=== PATIENT | female | born 1950 | race Caucasian/White ===

== ENCOUNTER 2024-08-29 18:07 | Inpatient (IN) | payer MEDICARE ==
[2024-08-29] MEDS: Sodium Chloride 0.9% 1,000 ML IV SCH (19:24)
[2024-08-29 19:29] LABS: BASOPHILS PERCENT AUTO 0.5 % (0.1-1.3); HEMATOCRIT 35.4 % (34.3-46.0); HEMOGLOBIN 12.6 g/dL (11.2-15.5); LYMPHOCYTES ABSOLUTE AUTO 0.24 K/uL (0.8-3.3); LYMPHOCYTES PERCENT AUTO 12.2 % (11.4-47.7); MEAN CORPUSCULAR HEMOGLOBIN 30.8 pg (31.6-35.5); MEAN CORPUSCULAR HGB CONC 35.6 g/dL (31.6-35.5); MEAN CORPUSCULAR VOLUME 86.6 fL (81.4-99.0); MONOCYTES ABSOLUTE AUTO 0.17 K/uL (0.20-0.90); MONOCYTES PERCENT AUTO 8.6 % (3.3-12.6); NEUTROPHILS ABSOLUTE AUTO 1.55 K/uL (1.0-7.6); NEUTROPHILS PERCENT AUTO 78.7 % (40.0-78.1); PLATELET COUNT,PLT 41 K/uL (130-375); RED BLOOD CELL COUNT 4.09 M/uL (3.77-5.24)
[2024-08-29 19:42] LABS: BASOPHILS ABSOLUTE AUTO 0.01 K/uL (0.00-0.10)
[2024-08-29 19:47] LABS: ALANINE AMINOTRANSFERASE,ALT 40 U/L (12-78); ALBUMIN 2.7 g/dL (3.4-5.0); ALKALINE PHOSPHATASE 73 U/L (46-116); ASPARTATE AMNIOTRANSFERASE,AST 57 U/L (15-37); BILIRUBIN TOTAL 0.4 mg/dL (0.2-1.0); BLOOD UREA NITROGEN,BUN 12 mg/dL (7-18); CALCIUM 8.6 mg/dL (8.5-10.1); CARBON DIOXIDE,CO2 22 mmol/L (21-32); CHLORIDE,CL 100 mmol/L (100-108); CREATININE 0.8 mg/dL (0.6-1.0); EST CRCL DRUG DOSING (CG) 64.12 mL/min; ESTIMATED GFR 78 mL/min (>60); GLUCOSE RANDOM 137 mg/dL (74-106); PROTEIN TOTAL,TP 5.5 g/dL (6.4-8.2); SODIUM,NA 132 mmol/L (140-148)
[2024-08-29] MEDS: Sodium Chloride 0.9% 80 ML IV SCH (20:07)
[2024-08-29] MEDS: Iopamidol 612 MG/ML 100 ML Bottle IV SCH (20:07)
[2024-08-29 20:08] LABS: BILIRUBIN,URINE NEGATIVE (NEGATIVE); COLOR,URINE YELLOW (YELLOW); GLUCOSE,URINE NEGATIVE (NEGATIVE); KETONES,URINE NEGATIVE (NEGATIVE); LEUKOCYTE ESTERASE,URINE SMALL (NEGATIVE); NITRITE,URINE NEGATIVE (NEGATIVE); OCCULT BLOOD,URINE TRACE-LYSED (NEGATIVE); PROTEIN,URINE 30 mg/dL (NEGATIVE); UROBILINOGEN,URINE 0.2 EU/dL (0.2-1.0)
[2024-08-29 20:14] LABS: AMORPHOUS SEDIMENT,URINE NOT SEEN; APPEARANCE,URINE SLIGHTLY CLOUDY (CLEAR); BACTERIA,URINE FEW; EPITHELIAL CELLS,URINE FEW; MUCUS,URINE NOT SEEN; RBC,URINE 0-5 (0-5)
[2024-08-29] MEDS: Acetaminophen 325 MG Tab PO ONE (21:39)
[2024-08-29] MEDS: Potassium Chloride 20 MEQ Tab.ER PO ONE (22:08)
[2024-08-29 23:17] LABS: LYME AB IgG Negative (Negative)
[2024-08-29 23:20] LABS: LYME AB IgM Negative (Negative)
[2024-08-29] MEDS: Doxycycline 100 MG in Sodium Chloride 0.9% 100 ML IV ONE (23:23)
[2024-08-29] MEDS ORDERED: Ondansetron 4 MG Tab.DIS PO PRN (23:31)
[2024-08-29] MEDS ORDERED: Ondansetron 4 MG/2 ML SDV IV PRN (23:31)
[2024-08-30] MEDS: Melatonin 3 MG Tab PO PRN (00:27)
[2024-08-30] MEDS: Doxycycline 100 MG in Sodium Chloride 0.9% 100 ML IV SCH ×2 (01:06→10:50)
[2024-08-30 05:56] LABS: HEMATOCRIT 34.2 % (34.3-46.0); HEMOGLOBIN 11.9 g/dL (11.2-15.5); MEAN CORPUSCULAR HEMOGLOBIN 30.7 pg (31.6-35.5); MEAN CORPUSCULAR HGB CONC 34.8 g/dL (31.6-35.5); MEAN CORPUSCULAR VOLUME 88.4 fL (81.4-99.0); RED BLOOD CELL COUNT 3.87 M/uL (3.77-5.24); WHITE BLOOD CELL COUNT,WBC 2.2 K/uL (3.2-11.0)
[2024-08-30 06:07] LABS: CALCIUM 8.7 mg/dL (8.5-10.1); CREATININE 0.7 mg/dL (0.6-1.0); EST CRCL DRUG DOSING (CG) 73.28 mL/min; MAGNESIUM 1.6 mg/dL (1.8-2.4); POTASSIUM,K 3.8 mmol/L (3.6-5.2)
[2024-08-30 06:10] LABS: ANION GAP 8.8 mmol/L (5.0-14.0)
[2024-08-30] MEDS: Magnesium Sulfate 2 GM/50 mL 2 GM in Premix Bag 1 BAG IV SCH (08:15)
[2024-08-30] MEDS: Sodium Chloride 0.9% 1,000 ML IV SCH (08:21)
[2024-08-30] MEDS ORDERED: Losartan 50 MG Tab PO SCH (09:00)
[2024-08-30] MEDS ORDERED: Metoprolol Succinate 50 MG Tab.ER PO SCH (09:00)
[2024-08-30] MEDS: Pantoprazole 40 MG Tab.CR PO SCH (09:25)
[2024-08-30] MEDS: Acetaminophen 325 MG Tab PO PRN (09:45)
[2024-08-30] MEDS: Lactobacillus Rhamnosus GG (Probiotic) Cap PO SCH (10:49)
[2024-08-30] MEDS: METOPROLOL 100 MG PO SCH (17:36)
[2024-08-30] MEDS: atorvaSTATin 20 MG Tab (PTOM) PO SCH (21:40)
[2024-08-31] MEDS: Sodium Chloride 0.9% 1,000 ML IV SCH (04:10)
[2024-08-31 06:09] LABS: HEMATOCRIT 31.5 % (34.3-46.0); HEMOGLOBIN 10.9 g/dL (11.2-15.5); MEAN CORPUSCULAR HEMOGLOBIN 30.3 pg (31.6-35.5); MEAN CORPUSCULAR HGB CONC 34.6 g/dL (31.6-35.5); MEAN CORPUSCULAR VOLUME 87.5 fL (81.4-99.0); PLATELET COUNT,PLT 59 K/uL (130-375); WHITE BLOOD CELL COUNT,WBC 3.6 K/uL (3.2-11.0)
[2024-08-31 06:26] LABS: A/G RATIO 0.9 (1.2-2.2); ALANINE AMINOTRANSFERASE,ALT 32 U/L (12-78); ALBUMIN 2.3 g/dL (3.4-5.0); ALKALINE PHOSPHATASE 63 U/L (46-116); ASPARTATE AMNIOTRANSFERASE,AST 34 U/L (15-37); BILIRUBIN TOTAL 0.3 mg/dL (0.2-1.0); BLOOD UREA NITROGEN,BUN 7 mg/dL (7-18); CALCIUM 8.8 mg/dL (8.5-10.1); CARBON DIOXIDE,CO2 26 mmol/L (21-32); CHLORIDE,CL 108 mmol/L (100-108); CREATININE 0.7 mg/dL (0.6-1.0); EST CRCL DRUG DOSING (CG) 73.28 mL/min; ESTIMATED GFR 92 mL/min (>60); GLUCOSE RANDOM 98 mg/dL (74-106); POTASSIUM,K 3.9 mmol/L (3.6-5.2); PROTEIN TOTAL,TP 4.9 g/dL (6.4-8.2); SODIUM,NA 139 mmol/L (140-148)
[2024-08-31 06:38] LABS: ANION GAP 8.9 mmol/L (5.0-14.0)
[2024-08-31 06:56] LABS: BAND ABSOLUTE MAN 0.29 K/uL; BAND PERCENT MAN 8 % (5-11); EOSINOPHILS ABSOLUTE MAN 0.04 K/uL (0.00-0.40); EOSINOPHILS PERCENT MAN 1 % (2-4); LYMPHOCYTES PERCENT MAN 36 % (24-44); METAMYELOCYTE ABSOLUTE MAN 0.04 K/uL; METAMYELOCYTE PERCENT MAN 1 %; MONOCYTES ABSOLUTE MAN 0.36 K/uL (0.20-0.90); MONOCYTES PERCENT MAN 10 % (2-6); NEUTROPHILS ABSOLUTE MAN 1.58 K/uL (1.0-7.6); OVALOCYTES FEW; SEG NEUTROPHILS PERCENT MAN 44 % (36-66)
[2024-08-31 06:57] LABS: ATYPICAL LYMPHOCYTES FEW
[2024-08-31] MEDS: Metoprolol Succinate 50 MG Tab.ER PO SCH (18:38)
[2024-08-31] MEDS: atorvaSTATin 20 MG Tab PO SCH (21:04)
[2024-08-31] MEDS: Doxycycline 100 MG Cap PO SCH (21:29)
[2024-09-01 09:43] VITALS: BP 111/61; PULSE 59
[2024-09-02 00:13] LABS: ANAPLASMA PHAGOCYTOPHILUM PCR Detected; BABESIA MICROTI BY PCR Not Detected; BABESIA SPECIES BY PCR Not Detected; EHRLICHIA CHAFFEENSIS BY PCR Not Detected; EHRLICHIA EWINGII/CANIS BY PCR Not Detected; EHRLICHIA MURIS-LIKE BY PCR Not Detected
== END 2024-09-01 10:45 | disposition home or self-care (01) | DRG 869 ==
LOC: JP.ED 18:07 → JP.MS 23:13 → OBSVTOIN 08-31 08:16
PROVIDERS: ADMIT Registered Nurse; ATTEND Internal Medicine
DX: R19.7 Diarrhea, unspecified (principal); R50.9 Fever, unspecified; A77.49 Other ehrlichiosis; E87.6 Hypokalemia; H91.90 Unspecified hearing loss, unspecified ear; H54.7 Unspecified visual loss; E78.00 Pure hypercholesterolemia, unspecified; I10 Essential (primary) hypertension; D70.9 Neutropenia, unspecified; Z88.1 Allergy status to other antibiotic agents; Z91.09 Other allergy status, other than to drugs and biological substances; E86.0 Dehydration; D69.6 Thrombocytopenia, unspecified; J45.909 Unspecified asthma, uncomplicated; K21.9 Gastro-esophageal reflux disease without esophagitis; Z98.890 Other specified postprocedural states; Z98.49 Cataract extraction status, unspecified eye; Z90.49 Acquired absence of other specified parts of digestive tract; Z88.8 Allergy status to other drugs, medicaments and biological substances; Z90.710 Acquired absence of both cervix and uterus; Z87.891 Personal history of nicotine dependence; Z79.899 Other long term (current) drug therapy
CPT/HCPCS: 36415 ×3; 74177; 80048; 80053 ×2; 81001; 83735 ×2; 85025 ×2; 85027; 86618 ×2; 87046; 87077; 87186; 87427 ×2; 87468; 87469; 87484; 87493; 87798 ×3; 89055; 96361; 96365; 99285; A9270 ×9; J3475 ×2; J3490 ×3; J7030 ×3; Q9967; 96366; 96367; 99222; 99231; 99232; 99238; 99284; G0378

== ENCOUNTER 2024-11-11 09:52 | Emergency (ER) | payer MEDICARE ==
[2024-11-11 10:10] VITALS: BP 141/80; PULSE 73
[2024-11-11 10:20] LABS: APPEARANCE,URINE TURBID (CLEAR); GLUCOSE,URINE NEGATIVE (NEGATIVE); OCCULT BLOOD,URINE LARGE (NEGATIVE)
[2024-11-11 10:27] LABS: SQUAMOUS EPITHELIAL CELLS,UR FEW /HPF
== END 2024-11-11 11:07 | disposition home or self-care (01) ==
LOC: JP.ED 09:52
DX: N39.0 Urinary tract infection, site not specified (principal); I10 Essential (primary) hypertension; E78.00 Pure hypercholesterolemia, unspecified; K21.9 Gastro-esophageal reflux disease without esophagitis; Z79.899 Other long term (current) drug therapy; Z88.8 Allergy status to other drugs, medicaments and biological substances; Z90.49 Acquired absence of other specified parts of digestive tract; Z90.710 Acquired absence of both cervix and uterus
CPT/HCPCS: 81001; 87086; 99283